=== PATIENT | female | born 1970 | race Caucasian/White ===

== ENCOUNTER → 2020-12-20 | Outpatient (CLI) | payer OTHER ==
[~2020-12-20] MED LIST: SULF1TAB38 PO
--- NOTE | 2020-12-20 14:39 | Diagnostic Imaging Report ---
PROCEDURE: Pelvic comp/transvaginal sonogram. TECHNIQUE: Complete transabdominal and transvaginal pelvic ultrasound was performed. In addition, limited pelvic Doppler was performed. INDICATION: Pelvic pain and dysfunctional uterine bleeding. Uterus is anteverted measuring 6.9 x 3.2 x 4.9 cm. Endometrium is 5 mm in thickness. No myometrial mass is identified. Ovaries cannot be visualized. No adnexal mass or free fluid is detected. IMPRESSION: Nonvisualized ovaries. The study is otherwise unremarkable. Dictated by: Dictated on workstation # [id number]
== END ==
LOC: RAD 12:00
PROVIDERS: ATTEND Surgery
DX: N93.8 Other specified abnormal uterine and vaginal bleeding (principal)
CPT/HCPCS: 76830; 76856

== ENCOUNTER → 2023-06-06 | Outpatient (CLI) | payer OTHER ==
--- NOTE | 2023-06-06 18:15 | Diagnostic Imaging Report ---
Clinical indications: Patient fell 5 days ago and has nausea, headache right side vision issues and bruising to right side of forehead. Exam: Axial CT scan of the brain without IV contrast with coronal and sagittal reformatted images. Auto Exposure Controls were utilized during the CT exam to meet ALARA standards for radiation dose reduction. Comparison: None Findings: There is no evidence of acute cerebral infarct, intracranial hemorrhage, or gross mass effect. The brain parenchymal volume appears appropriate for patient's age. There is normal clemons-white matter distinction. There is no significant midline shift or herniation. There is no evidence of hydrocephalus. The basal cisterns are unremarkable. There is a small area of extracranial soft tissue swelling involving the right anterior aspect of the head/right forehead region. The orbits and globes are intact. There is no skull fracture. There are moderate to large amounts of patchy consolidation involving the ethmoid sinus. There is mild mucosal thickening involving the sphenoid sinus and frontal sinus. The bilateral mastoid air cells are clear. IMPRESSION: 1: There is no CT evidence of acute intracranial process. No intracranial hemorrhage. 2: There is small area of extracranial soft tissue swelling involving the right anterior aspect of the head/forehead region. There is no skull fracture. 3: There is paranasal sinus disease. Results of this report discussed with the nurse in the urgent care via the telephone on 06/06/2023 at 1809 hours. Dictated by: Dictated on workstation # [id number]
== END ==
LOC: RAD 17:46
PROVIDERS: ATTEND Registered Nurse Critical Care Medicine
DX: J34.9 Unspecified disorder of nose and nasal sinuses (principal); S06.0X0A Concussion without loss of consciousness, initial encounter; S00.83XA Contusion of other part of head, initial encounter; R42 Dizziness and giddiness; H53.143 Visual discomfort, bilateral; R60.0 Localized edema; R11.0 Nausea; R01.1 Cardiac murmur, unspecified; R05.1 Acute cough; N10 Acute pyelonephritis; J40 Bronchitis, not specified as acute or chronic; W10.9XXA Fall (on) (from) unspecified stairs and steps, initial encounter; Y92.098 Other place in other non-institutional residence as the place of occurrence of the external cause
CPT/HCPCS: 70450